=== PATIENT | male | born 1965 | race Caucasian/White ===

== ENCOUNTER 2016-04-20 19:56 | Emergency (ER) | payer OTHER ==
[2016-04-20 20:10] VITALS: TEMP 98.1
[2016-04-20] MEDS ORDERED: PROPARACAINE 0.5% 15 ML OPHT DROP ONE (21:44)
[2016-04-20] MEDS ORDERED: FLUORESCEIN SODIUM 1 MG STRIP OP ONE ×2 (21:45→21:48)
[2016-04-20] MEDS ORDERED: PROPARACAINE 0.5% 15 ML OPHT DROP OP ONE (21:48)
--- NOTE | 2016-04-20 21:51 | EDPHY ---
General Narrative: CHIEF COMPLAINT: Bilateral eye pain HISTORY OF PRESENT ILLNESS: patient was working with [employer] today and through some fiberglass in the trash. He was feeling fine until approximately 0.5 hour to 1 hour later when he noted significant pain in both eyes. This is a severe pain that has been constant. Worse with exposure to light, but he can tolerate light. Some blurred vision at times. The patient was wearing contacts at the time but immediately removed them. He attempted to irrigate his eye without improvement. No diplopia. No all alleviating factors at home. No other associated complaints or modifying factors. Tetanus is up-to -date within the past 2 years. REVIEW OF SYSTEMS: Ten systems reviewed and are negative unless otherwise noted in the HPI EXAMINATION General Appearance: Alert, no distress Head: normocephalic, atraumatic Eyes: Pupils equal and round . No hyphema. No subconjunctival hemorrhage. Moderate conjunctival injection. EOMs intact. Visual gore intact by confrontation ENT, Mouth: Mucous membranes moist Neck: Normal inspection, supple, non-tender Respiratory: no retractions or distress. Cardiovascular: Regular rate and rhythm . No murmur. Pulses intact distally. Skin: Warm and dry, no rash . No erythema Extremities: Nontender, no pedal edema Psychiatric: Mood and affect normal DIFFERENTIAL DIAGNOSES: Including but not limited to corneal abrasion, foreign body, conjunctivitis, iritis MDM: 9:50 p.m. possible exposure to fiberglass in both eyes. Moderate pain. Visual acuity intact by confrontation. I will topically numb the eye, we will copiously irrigate, and I will re-evaluate. 10:30 p.m. I have re-evaluated the patient with fluorescein and slit-lamp examination. There are no abnormalities in the anterior chamber. The Nomi-Pen reveals symmetric pressures at 15. There is uptake on multiple small areas of both cornea. I have paged Ophthalmology to discuss. 10:50 p.m. I have discussed the case with the on-call bag loader Dr. Loera. We discussed the examination in the slit-lamp exam findings. He recommends that we start the patient on Ocuflox. He would like the patient to have 1 drop in each eye 4 times daily. He would like the patient to contact him to be seen in the office tomorrow. I discussed this with the patient he is comfortable with this plan. He is feeling better at this time. He will be discharged home with Ocuflox prepack, Percocet prepack and contact information for Dr. Loera. He is to return to ER for any worsening symptoms overnight. I have answered all his questions and he is discharged home in stable condition feeling much better at this time. SUPERVISION: Independent evaluation with Ophthalmology consult by telephone - History Smoking Status: Current every day smoker - Objective Vital Signs: Initial Vital Signs Temperature (C) 98.1 F 04/20/16 20:08 Heart Rate 67 04/20/16 20:08 Respiratory Rate 18 04/20/16 20:08 Blood Pressure 135/80 H 04/20/16 20:08 O2 Sat (%) 94 04/20/16 20:08 O2 Delivery Mode Room Air Allergies/Adverse Reactions: CATS Allergy (Intermediate, Uncoded 04/20/16 20:10) WATERY EYES, ASTHMA TYPE SYMPTOMS Home Medications: Medication Instructions Recorded Albuterol [Proventil Inhaler (RX)] 1 puffs IH DAILY PRN 06/02/11 Ergocalciferol (Vitamin D2) 50,000 unit PO Q7D 06/02/11 [Vitamin D2] Cipro 07/28/15 Hydrocodon-Acetaminophen 5-325 07/28/15 Ofloxacin 0.3% [Ocuflox 0.3%] 1 drops OP QID #1 opht.btl 04/20/16 oxyCODONE HCL/ACETAMINOPHEN 1 each PO Q4-6PRN PRN #15 tablet 04/20/16 [Percocet 5-325 mg Tablet] Medications Given: Discontinued Medications Fluorescein Sodium (Cezea-V-Dflay) 1 mg OP EDNOW ONE Stop: 04/20/16 21:49 Last Admin: 04/20/16 21:58 Dose: 1 mg Proparacaine HCl (Alcaine 0.5%) 1 drops OP EDNOW ONE Stop: 04/20/16 21:49 Last Admin: 04/20/16 21:58 Dose: 1 drop Departure - Departure Disposition: Home, Routine, Self-Care Clinical Impression: Foreign body, eye Qualifiers: Encounter type: initial encounter Laterality: unspecified laterality Qualified Code(s): T15.90XA - Foreign body on external eye, part unspecified, unspecified eye, initial encounter Corneal abrasion of both eyes Qualifiers: Encounter type: initial encounter Qualified Code(s): S05.01XA - Injury of conjunctiva and corneal abrasion without foreign body, right eye, initial encounter Condition: Good Instructions: Oxycodone/Acetaminophen (By mouth), Eye Foreign Body (ED), Conjunctivitis (ED) Additional Instructions: follow-up with Ophthalmology tomorrow morning. Return to ER for worsening symptoms. Referrals: Spike Carrion [Primary Care Provider] - As per Instructions Moises Loera MD [Medical Doctor] - 1 day without fail Prescriptions: Ofloxacin 0.3% [Ocuflox 0.3%] 1 drops OP QID #1 opht.btl oxyCODONE HCL/ACETAMINOPHEN [Percocet 5-325 mg Tablet] 1 each PO Q4-6PRN PRN # 15 tablet PRN Reason: Pain, Breakthrough
[2016-04-20] MEDS ORDERED: OXYCODONE/APAP 5/325MG PREPACK#4 BTL TAKEHOME ONE (22:44)
[2016-04-20] MEDS ORDERED: OFLOXACIN 0.3% SOLN PREPACK OPHT.BTL TAKEHOME ONE (22:54)
[2016-04-20 23:21] VITALS: BP 120/82; PULSE 78; RESP 20; O2SAT 98
== END 2016-04-20 23:20 | disposition home or self-care (01) ==
DX: T15.91XA Foreign body on external eye, part unspecified, right eye, initial encounter (principal); T15.92XA Foreign body on external eye, part unspecified, left eye, initial encounter; F17.200 Nicotine dependence, unspecified, uncomplicated; X58.XXXA Exposure to other specified factors, initial encounter; Y93.89 Activity, other specified